=== PATIENT | female | born 1965 ===

== ENCOUNTER → 2019-01-25 16:12 | Outpatient (CLI) | payer OTHER ==
[2019-01-25 16:57] LABS: BASOPHILS 0.1 % (0-2); EOSINOPHILS 0 % (0-7); HEMATOCRIT 44.9 % (36.0-48.0); HEMOGLOBIN 14.2 g/dL (12-16); IMMATURE GRANULOCYTES 0.2 % (0-5); LYMPHOCYTES 15.5 % (15-50); MCH 28.6 pg (26.0-34.0); MCHC 31.6 g/dL (31.0-37.0); MCV 90.5 fL (80.0-100.0); MONOCYTES 6.7 % (2-11); NEUTROPHILS 77.5 % (40-80); PLATELET COUNT 204 10x3/uL (130-400); RBC 4.96 10x6/uL (4.00-5.40); RDW 13.2 % (11.5-14.5); WBC 9.6 10x3/uL (4.8-10.8)
[2019-01-25 17:06] LABS: CREATININE - SERUM 0.6 mg/dL (0.6-1.3)
== END | disposition home or self-care (01) ==
LOC: D.LABREF 16:12
PROVIDERS: ATTEND Surgery
DX: Z98.84 Bariatric surgery status (principal)